=== PATIENT | female | born 1955 | race Caucasian/White ===

== ENCOUNTER 2017-11-21 11:30 | Emergency (ER) | payer OTHER ==
[~2017-11-21] VITALS: Ht 175.3 cm; Wt 81.6 kg
[~2017-11-21 11:30] MED LIST: CARISOPRODOL350 MG PO; CINNAMON500 MG; DULOXETINE HYDR60 MG PO; GLIMEPIRIDE4 MG PO; KRILL OIL PO; LIDOCAINE51; METFORMIN1000 MG PO; PERCOCET 325 MG1 TA2 PO; TOPROL XL 25MG25 MG PO; VITAMIN D31000 IU PO; VOLTAREN GEL1% TOP; [UNRECOGNIZED DRUG - MIXTURE] PO
--- NOTE | 2017-11-21 14:15 | RADIOLOGY REPORT ---
EXAMINATION: XR SHOULDER, LEFT CLINICAL INFORMATION: Neck and left shoulder pain. COMPARISON: Chest x-ray dated 12/29/2011 TECHNIQUE: AP external rotation, Grashey, scapular Y, and axillary views of the left shoulder. FINDINGS: There is shortening of the left clavicle, with absence of approximately 4 cm of the distal left clavicle suggestive of acro-osteolysis or prior traumatic injury with bony resorption. The glenohumeral joint and joint space is maintained. No soft tissue calcifications are present. Visualized portions of the left ribs are unremarkable. IMPRESSION: 1. Shortening of the left clavicle, suggestive of acro-osteolysis, or prior traumatic injury with resulting bony resorption. The finding is not present on the most recent chest x-ray of 12/29/2011 2. Normal glenohumeral joint.
--- NOTE | 2017-11-21 14:38 | ED NECK/BACK PAIN COMPLAINT ---
History of Present Illness General Chief Complaint: Shoulder Injury Stated Complaint: SHOULDER/NECK PAIN REDUCED MOBILITY Source: patient Exam Limitations: no limitations Vital Signs & Intake/Output Vital Signs & Intake/Output Vital Signs Date Time Temp Pulse Resp B/P B/P Pulse O2 O2 Flow FiO2 Mean Ox Delivery Rate 11/21 1440 91 20 127/86 97 Room Air 11/21 1149 98.0 86 20 145/75 98 Room Air ED Intake and Output 11/22 0000 11/21 1200 Intake Total 120 Output Total Balance 120 Intake, Oral 120 Patient 180 lb Weight Weight Reported by Patient Measurement Method Allergies Coded Allergies: Iodinated Contrast- Oral and IV Dye (Intermediate, FACIAL SWELLING 11/21/17) fentanyl (Intermediate, VOMITING 11/21/17) cephalexin (From KEFLEX) (Mild, "I THINK A RASH" 11/21/17) Uncoded Allergies: IV CONTRAST (Severe, FACIAL SWELLING 02/01/15) Reconcile Medications Atorvastatin Calcium 40 MG TABLET 1 TAB PO DAILY CHOLESTEROL (Reported) Cholecalciferol (Vitamin D3) 1,000 UNIT TABLET 1 TAB PO DAILY SUPPLEMENT ( Reported) [CRANBERRY W/C] 840 MG TAB 1 TAB PO D SUPPLEMENT (Reported) Diclofenac Sodium (Voltaren) 1 % GEL..GRAM. 1 GM TOP 4XDP ARTHRITIS (Reported ) apply to affected area(s) Dicyclomine HCl 10 MG CAPSULE 1 CAP PO Q6 IBS (Reported) Duloxetine HCl 60 MG CAPSULE.DR 2 CAP PO DAILY DEPRESSION (Reported) Glimepiride 4 MG TABLET 1 TAB PO DAILY DIABETES (Reported) [KRILL OIL] 300 MG TAB 1 TAB PO D SUPPLEMENT (Reported) Lidocaine 5% TDM PAIN (Reported) Linagliptin (Tradjenta) 5 MG TABLET 1 TAB PO DAILY DIABETES (Reported) Lorazepam 1 MG TABLET 1 TAB PO BIDP PRN ANXIETY (Reported) Metformin HCl 1,000 MG TABLET 1 TAB PO BID DIABETES TYPE 2 (Reported) Metoprolol Succ XL (Toprol XL 25MG) 25 MG TAB 1 TAB PO DAILY CHOLESTEROL ( Reported) OXYCODONE HCL/ACETAMINOPHEN (Percocet 5-325 MG Tablet) 325 MG/5 MG TAB 1-2 TAB PO Q4-6 PRN PRN PAIN (Reported) Oxycodone HCl/Acetaminophen (Percocet 5-325 MG Tablet) 5 MG-325 MG TABLET 1 TAB PO 4 TIMES/DAY PRN PAIN Triage Note: WOKE UP THIS MORNING WITH PAIN IN LEFT SHOULDER BLADE THAT RUNS UP TO THE BASE OF HER NECK. STATES C-3 TO T-1 FUSION. Triage Nurses Notes Reviewed? yes Onset: Abrupt Duration: day(s): (1), changing over time, continues in ED, getting worse Timing: single episode today Quality/Severity: severe, radiation Location: C-spine, paraspinous muscles Radiation: left shoulder Method of Injury: unknown Loss of Consciousness: no loss of consciousness LMP (ages 10-50): post menopausal : No Patient currently breastfeeds: No HPI: 62 year old female with hx of htn, hld and niddm chronci neck and left shoduelr pain presents for eval of worsening rivera in her neck and left shoudler. pt rpeorts that she woke up this morning with the pain. there was no trauma or triggeing event. pain is located in the left scapula and radiated into the left inferior neck. worse with movemem and positioning. no chest pain, sob, numbness/ tingling, arm pain, low back pain or ffever. she had a cervical spine fusion years ago. she states that the pain she has now is similar to the pain she had before that surgery. She is not taking any medicine for the pain currently. She has an appointment on Tuesday with a specialist. She rates this pain10/ 10. (Marco Antonio Thrasher) Past History Travel History Traveled to [place] past 21 day No Medical History Any Pertinent Medical History? 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 No (Marco Antonio Thrasher) Review of Systems Review of Systems Constitutional: Reports: no symptoms. Eyes: Reports: no symptoms. Ears, Nose, Throat, Mouth: Reports: no symptoms. Respiratory: Reports: no symptoms. Cardiovascular: Reports: no symptoms. Gastrointestinal/Abdominal: Reports: no symptoms. Musculoskeletal: Reports: see HPI, back pain, joint pain, muscle pain, muscle stiffness, neck pain. Skin: Reports: no symptoms. Neurological/Psychological: Reports: no symptoms. All Other Systems: Reviewed and Negative (Marco Antonio Thrasher) Physical Exam Physical Exam General Appearance: well developed/nourished, no apparent distress, alert, awake Head: atraumatic, normal appearance Eyes: Bilateral: normal appearance, EOMI. Ears, Nose, Throat, Mouth: moist mucous membrane Neck: normal inspection, supple, full range of motion (with pain ), paraspinous muscle tender (left), no midline tenderness, there is a large midline surgical incision over the cervical vertebrae. It is well-healed no erythema or discharge. No midline tenderness no step-offs or deformities no bruising swelling or abrasions Respiratory: normal breath sounds, chest non-tender, no respiratory distress, lungs clear Cardiovascular: regular rate/rhythm, normal peripheral pulses Peripheral Pulses: 2+ radial (R), 2+ radial (L) Gastrointestinal: soft, non-tender Back: normal inspection, normal range of motion, no vertebral tenderness Extremities: normal range of motion (pain with left shoulder rom), there is tenderness palpation of the left inferior border of the scapula. No swelling no erythema. Pain with range of motion of the left shoulder. No tenderness of the acromioclavicular joint or clavicle. No erythema or swelling. Neurovascular supply intact. Patient is moving remaining extremities equally Straight Leg Raising: Right: Negative. Left: Negative. DTR: Patellar: 2: L4 Right, L4 Left. Neurologic/Psych: no motor/sensory deficits, awake, alert, oriented x 3, normal gait, normal mood/affect Skin: intact, normal color, warm/dry Core Measures CVA/TIA Diagnosis: No (Marco Antonio Thrasher) Progress Differential Diagnosis: C spine injury, carotid dissection, cauda equina syn, herniated disc, myofascial strain, sciatica, thoracic outlet syn, cervical radiculopathy, rotator cuff injury, muscle strain, arthritis, loosening of hardware Plan of Care: Orders Procedure Date/time Status XRY-CERVICAL SPINE TRAUMA 11/21 1242 Active Current Medications Sig/Liyah Start time Last Medication Dose Stop Time Status Admin Oxycodone/ 1 TAB ONCE ONE 11/21 1445 UNVr Acetaminophen 11/21 1446 (Percocet) Patient seen and evaluated. She has a previous history of left-sided neck and back pain she feels like this pain is similar to previous before she had her cervical spine fusion. No trauma no change event. This pain is very reproducible with range of motion and palpation no suspicion for acute coronary syndrome. X-rays of the cervical spine and left shoulder were obtained and do not show any acute findings. There does appear to be some reabsorption of the clavicle from a previous injury. Patient has no pain in this area. Patient was medicated with Percocet and is feeling better. She was struck to the rest apply heat/ice and voice is physical activity. Offered shoulder immobilizer but patient feels like that'll keep it in an uncomfortable position. Tylenol or ibuprofen for pain Percocet for severe pain only. Follow-up with specialist on Tuesday as scheduled discussed return precautions patient appears well she agrees. Diagnostic Imaging: Viewed by Me: Radiology Read. Discussed w/RAD: Radiology Read. Radiology Impression: PATIENT: TYSON BURGOS PRESENT AGE: 62 PATIENT ACCOUNT NO: [id number] : 57 LOCATION: [facility] ORDERING PHYSICIAN: Edu ABERNATHY SERVICE DATE: 11/21/17 EXAM TYPE: RAD - XRY-CERVICAL SPINE TRAUMA EXAMINATION: XR CERVICAL SPINE CLINICAL INFORMATION: Neck and left shoulder pain. COMPARISON: MRI dated 10/09/2010 TECHNIQUE: AP, lateral, and open-mouth odontoid views of the cervical spine FINDINGS: There is solid osseous fusion in the cervical spine from C3 through C7 with ACDF plate and screw fixation from C4 through C7 and posterior instrumented fusion from C3 through T1. Hardware appears intact. Cerclage wires are present at the inferior aspect of the posterior fixation construct. There is mild to moderate degenerative disc disease in the C7-T1 level and the upper thoracic spine. Facet arthropathy and minimal degenerative disc disease are also present at C2-C3. Bones are osteopenic. No osseous lesions. Prevertebral soft tissues are normal. Multiple teeth are absent from the maxilla and mandible. Lung apices appear clear. Calcific atherosclerosis is present in the carotid arteries. IMPRESSION: 1. Anterior and posterior fusion from C3 through T1 without evidence of complications. 2. Mild degenerative disc disease and moderate facet arthropathy at C2-C3 and mild to moderate degenerative disc disease in the upper thoracic spine. No acute osseous abnormalities. DICTATED BY: Leonides De La Torre MD DATE/TIME DICTATED:11/21/171518 UPHOLSTERER LIMOUSINE AND HEARSE:DIMPLE DATE/TIME TRANSCRIBED:11/21/171518 CONFIDENTIAL, DO NOT COPY WITHOUT APPROPRIATE AUTHORIZATION., PATIENT: TYSON BURGOS PRESENT AGE: 62 PATIENT ACCOUNT NO: [id number] : 57 LOCATION: [facility] ORDERING PHYSICIAN: Edu ABERNATHY SERVICE DATE: 11/21/17 EXAM TYPE: RAD - XRY -SHOULDER COMPLETE-LEFT EXAMINATION: XR SHOULDER, LEFT CLINICAL INFORMATION: Neck and left shoulder pain. COMPARISON: Chest x-ray dated 12/29/2011 TECHNIQUE: AP external rotation, Grashey, scapular Y, and axillary views of the left shoulder. FINDINGS: There is shortening of the left clavicle, with absence of approximately 4 cm of the distal left clavicle suggestive of acro-osteolysis or prior traumatic injury with bony resorption. The glenohumeral joint and joint space is maintained. No soft tissue calcifications are present. Visualized portions of the left ribs are unremarkable. IMPRESSION: 1. Shortening of the left clavicle, suggestive of acro-osteolysis, or prior traumatic injury with resulting bony resorption. The finding is not present on the most recent chest x -ray of 12/29/2011 2. Normal glenohumeral joint. DICTATED BY: Crystal Coffman MD DATE/TIME DICTATED:11/21/171401 UPHOLSTERER LIMOUSINE AND HEARSE:DIMPLE DATE/ TIME TRANSCRIBED:11/21/171401 CONFIDENTIAL, DO NOT COPY WITHOUT APPROPRIATE AUTHORIZATION. (Marcus ABERNATHY,[facility]) Departure Departure Disposition: HOME OR SELF CARE Condition: Stable Clinical Impression Primary Impression: Left shoulder pain Qualifiers: Chronicity: acute Qualified Code: M25.512 - Pain in left shoulder Referrals: Keith BOWMAN,Sanjeev Bagley (PCP/Family) Additional Instructions: Rest, avoid heavy lifting bending or excessive physical activity. Tylenol ibuprofen as needed for pain. Percocet for severe pain only this may cause drowsiness. Make a follow-up appointment with your specialist and surgeon as soon as possible. Monitor symptoms closely return with any concerns. Departure Forms: Customer Survey General Discharge Information Prescriptions: Current Visit Scripts Oxycodone HCl/Acetaminophen (Percocet 5-325 MG Tablet) 1 TAB PO 4 TIMES/DAY PRN PAIN #10 TAB (Marco Antonio Thrasher) PA/PROVER Co-Sign Statement Statement: ED Attending supervision documentation- X I saw and evaluated the patient. I have also reviewed all the pertinent lab results and diagnostic results. I agree with the findings and the plan of care as documented in the PA's/PROVER's documentation. [] I have reviewed the ED Record and agree with the PA's/PROVER's documentation. [] Additions or exceptions (if any) to the PAs/PROVER's note and plan are summarized below: [] (Cheryle BOWMAN,[place])
[2017-11-21 14:40] VITALS: BP 127/86
[2017-11-21] MEDS ORDERED: METFORMIN HCL1000 M1 PO (14:44)
[2017-11-21] MEDS ORDERED: DULOXETINE HCL60 MG PO (14:45)
[2017-11-21] MEDS ORDERED: ATORVASTATIN CA40 M1 PO (14:46)
[2017-11-21] MEDS ORDERED: GLIMEPIRIDE4 M1 PO (14:46)
[2017-11-21] MEDS ORDERED: TRADJENTA5 M1 PO (14:46)
[2017-11-21] MEDS ORDERED: LORAZEPAM1 M1 PO (14:47)
[2017-11-21] MEDS ORDERED: DICYCLOMINE HCL10 M1 PO (14:48)
[2017-11-21] MEDS ORDERED: VITAMIN D31000 UNI2 PO (14:49)
[2017-11-21] MEDS ORDERED: VOLTAREN100 GM TOP (14:50)
--- NOTE | 2017-11-21 15:26 | RADIOLOGY REPORT ---
EXAMINATION: XR CERVICAL SPINE CLINICAL INFORMATION: Neck and left shoulder pain. COMPARISON: MRI dated 10/09/2010 TECHNIQUE: AP, lateral, and open-mouth odontoid views of the cervical spine FINDINGS: There is solid osseous fusion in the cervical spine from C3 through C7 with ACDF plate and screw fixation from C4 through C7 and posterior instrumented fusion from C3 through T1. Hardware appears intact. Cerclage wires are present at the inferior aspect of the posterior fixation construct. There is mild to moderate degenerative disc disease in the C7-T1 level and the upper thoracic spine. Facet arthropathy and minimal degenerative disc disease are also present at C2-C3. Bones are osteopenic. No osseous lesions. Prevertebral soft tissues are normal. Multiple teeth are absent from the maxilla and mandible. Lung apices appear clear. Calcific atherosclerosis is present in the carotid arteries. IMPRESSION: 1. Anterior and posterior fusion from C3 through T1 without evidence of complications. 2. Mild degenerative disc disease and moderate facet arthropathy at C2-C3 and mild to moderate degenerative disc disease in the upper thoracic spine. No acute osseous abnormalities.
[2017-11-21] MEDS ORDERED: PERCOCET 5-3251 EACH PO (15:30)
== END 2017-11-21 15:35 ==
LOC: ERH 11:30
DX: M25.512 Pain in left shoulder (principal)
CPT/HCPCS: 72050; 73030-LT